=== PATIENT | female | born 1950 | race Caucasian/White ===

== ENCOUNTER → 2017-03-27 | Outpatient (CLI) | payer MEDICARE, OTHER ==
[~2017-03-27] MED LIST: ACET-2723 PO; CALC-969 PO; CHOL100018 PO; ESTR0.3T3 PO; MINO60SO TOP; MULT-37 PO; [UNRECOGNIZED DRUG - CODE] OP
== END ==
LOC: WC.BC 11:19
DX: Z12.31 Encounter for screening mammogram for malignant neoplasm of breast (principal); N64.59 Other signs and symptoms in breast; N64.89 Other specified disorders of breast
CPT/HCPCS: 77063; G0202